=== PATIENT | female | born 2000 | race Caucasian/White ===

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

== ENCOUNTER 2022-02-01 19:50 | Emergency (ER) | payer BC ==
--- OUTSIDE RECORDS SUMMARY | 2022-02-01 19:54 | XMS REPORT | Continuity of Care Document ---
:2000 Author Organization [facility] t Address [facility] [address] [place] [address] Care Team Providers Name Role Phone PAYTON Primary Care Physician Unavailable KARIN Attending Clinician Unavailable Mel GOOD Attending Clinician Unavailable Dain MULLER Attending Clinician Unavailable Dain Lopez Attending Clinician Mel Good MD Attending Clinician 2, Lab Attending Clinician Unavailable Doctor Unassigned, Name Attending Clinician Unavailable GRACIELA Attending Clinician Unavailable Graciela BLEVINS Attending Clinician Violeta ROBERTSON Attending Clinician Unavailable Violeta ROBERTSON Admitting Clinician Unavailable Payers Payer Name Policy Type Policy Number Effective Date Expiration Date [facility] [id number] 2017 00:00:00 SELECT Advance Directives Directive Decision Effective Termination Comments Source Date Date Healthcare Agents on N/A [facility] FileNameRetooele valley hospitalipHealthcare [facility] Agent Medical RelationshipCommunicationArchbold - Grady [facility] Branch Soheila DaveyMitherHealth Care [phone] (Mobile) [email or web address] mook Davey Jr.[facility] Care [phone] (Mobile) Problems Condition Condition Condition Status Onset Resolution Last Treating Co mments Source Name Details Category Date Date Treatment Clinician Date Anxiety in Anxiety in Disease Active U nivers 4-22 ity of in first in first 00:00: [place] trimester, trimester, 00 Me dical antepartum antepartum Br anch 11 weeks 11 weeks Disease Active Unive rs gestation gestation 4-22 ity of of of 00:00: [place] 00 [facility] High-risk High-risk Disease Active Uni vers 4-22 ity of in first in first 00:00: [place] trimester trimester 00 [facility] Nausea and Nausea and Disease Active U nivers vomiting vomiting 4-22 ity of during during 00:00: [place] 00 [facility] History of History of Disease Active U nivers hypertensi hypertensi 4-22 it y of on on 00:00: [place] [facility] Anxiety Anxiety Disease Active Univers and and 3-25 ity of depression [place] Obesity Obesity Disease Active Univers (BMI (BMI 1-29 ity of 30-39.9) 30-39.9) 00:00: [place] [facility] JOSE JOSE Disease Active 2018-10 Univers (obstructi (obstructi 0-25 it y of ve sleep ve sleep 00:00: [place] apnea) apnea) 00 Medical Branch Pes planus Pes planus Disease Active U nivers of both of both 3-18 ity of feet feet 00:00: [place] 00 Medical Branch NSAID NSAID Disease Active Univers long-term long-term 3-18 ity of use use 00:00: [place] [facility] Hamstring Hamstring Disease Active Uni vers tightness tightness 3-18 ity of of both of both 00:00: [place] lower lower 00 Medical extremitie extremitie Br anch s s Arthralgia Arthralgia Disease Active U nivers 3-18 ity of 00:00: [place] 00 Medical Branch Abnormal Abnormal Disease Active Unive rs laboratory laboratory 3-18 it y of test test 00:00: [place] result result 00 Medical Branch Rheumatoid Rheumatoid Disease Active U nivers factor factor 2-18 ity of positive positive 00:00: [place] [facility] Dry skin Dry skin Disease Active Unive rs 2-18 ity of 00:00: [place] 00 Medical Branch Allergies, Adverse Reactions, Alerts Allergy Allergy Status Severity Reaction(s) Onset Inactive Treating Comm ents Source Name Type Date Date Clinician NO KNOWN Drug Active Univers ALLERGIE Class ity of S [facility] [place] [facility] Social History Social Habit Start Date Stop Date Quantity Comments Source ASSERTION 2021-11-16 [facility] 00:00:00 [place] [facility] History SDOH University o f Alcohol Frequency [place] M edical [facility] History SDOH University o f Alcohol Std [place] Medical Drinks Branch History SDID University o f Alcohol Binge [place] Medic al Branch Exposure to 2022-01-21 2022-01-31 Not sure [facility] [place]-CoV-2 00:00:00 20:32:00 [facility] (event) Branch Alcohol intake 2022-01-31 2022-01-31 Ex-drinker [facility] 00:00:00 00:00:00 (finding) [facility] [place] [facility] Alcohol Comment 2021-12-09 2021-12-09 4x a year Universit y of 00:00:00 00:00:00 [facility] [place] [facility] Tobacco use and 2015-11-20 2015-11-20 Never used Universit y of exposure 00:00:00 00:00:00 [facility] [place] [facility] Sex Assigned At [birth year] Universit y of 00:00:00 00:00:00 [facility] [place] [facility] Smoking Status Start Date Stop Date Source Never smoker [facility] Medications Ordered Filled Start Stop Current Ordering Indication Dosage Frequency Signature Comments Components Source Medication Medication Date Date Medication? Clinician (SIG) Name Name SERTraline Yes [id number] 25mg Take 1 Univers 25 mg 3-25 109 tablet by ity of tablet 00:00: mouth 00 daily. Medical Branch proMETHazin Yes [id number] 12.5mg Take 1 Univers e 12.5 mg 3-25 tablet by ity o f tablet 00:00: mouth 00 every 4 Medical (four) Branch hours as needed for Nausea and Vomiting (N/V). SERTraline Yes [id number] 25mg Take 1 Univers 25 mg 3-25 109 tablet by ity of tablet 00:00: mouth 00 daily. Medical Branch proMETHazin Yes [id number] 12.5mg Take 1 Univers e 12.5 mg 3-25 tablet by ity o f tablet 00:00: mouth [place] 00 every 4 Medical (four) Branch hours as needed for Nausea and Vomiting (N/V). SERTraline 0 Yes [id number] 25mg Take 1 Univers 25 mg 3-25 109 tablet by ity of tablet 00:00: mouth [place] 00 daily. Medical Branch proMETHazin 0 Yes [id number] 12.5mg Take 1 Univers e 12.5 mg 3-25 tablet by ity o f tablet 00:00: mouth [place] 00 every 4 Medical (four) Branch hours as needed for Nausea and Vomiting (N/V). SERTraline 0 Yes [id number] 25mg Take 1 Univers 25 mg 3-25 109 tablet by ity of tablet 00:00: mouth [place] 00 daily. Medical Branch proMETHazin 0 Yes [id number] 12.5mg Take 1 Univers e 12.5 mg 3-25 tablet by ity o f tablet 00:00: mouth [place] 00 every 4 Medical (four) Branch hours as needed for Nausea and Vomiting (N/V). SERTraline 0 Yes [id number] 25mg Take 1 Univers 25 mg 3-25 109 tablet by ity of tablet 00:00: mouth [place] 00 daily. Medical Branch proMETHazin 0 Yes [id number] 12.5mg Take 1 Univers e 12.5 mg 3-25 tablet by ity o f tablet 00:00: mouth [place] 00 every 4 Medical (four) Branch hours as needed for Nausea and Vomiting (N/V). SERTraline 0 Yes [id number] 25mg Take 1 Univers 25 mg 3-25 109 tablet by ity of tablet 00:00: mouth [place] 00 daily. Medical Branch proMETHazin 0 Yes [id number] 12.5mg Take 1 Univers e 12.5 mg 3-25 tablet by ity o f tablet 00:00: mouth [place] 00 every 4 Medical (four) Branch hours as needed for Nausea and Vomiting (N/V). ondansetron 2021- No 4mg 4 mg, Slow Univers (ZOFRAN 3-15 03-15 IV Push, ity of (PF)) 01:15: 00:33 ONCE, 1 [place] injection 4 00 :00 dose, On Medi kevin mg Mon Branch 3/14/22 at 2015, KAUSHIK NaCl 0.9% No 1000mL at 999 Uni vers (NS) bolus 3-15 03-15 mL/hr, ity of infusion 01:00: 01:52 1,000 mL, [place] as 1,000 mL 00 :00 IV Medical Infusion, Branch ONCE, 1 dose, On 12/14/21 at 2000, KAUSHIK Yes [id number] 1{tbl} Take 1 U nivers vit 3-09 tablet by ity of no.124/iron 14:55: [place] /folic 30 Medical ( Branch VITAMIN ORAL) Yes [id number] 1{tbl} Take 1 U nivers vit 3-09 tablet by ity of no.124/iron 14:55: [place] /folic 30 Medical ( Branch VITAMIN ORAL) Yes [id number] 1{tbl} Take 1 U nivers vit 3-09 tablet by ity of no.124/iron 14:55: [place]. [place] /folic 30 Medical ( Branch VITAMIN ORAL) Yes [id number] 1{tbl} Take 1 U nivers vit 3-09 tablet by ity of no.124/iron 14:55: [place] /folic 30 Medical ( Branch VITAMIN ORAL) Yes [id number] 1{tbl} Take 1 U nivers vit 3-09 tablet by ity of no.124/iron 14:55: [place]. [place] /folic 30 Medical ( Branch VITAMIN ORAL) Yes [id number] 1{tbl} Take 1 U nivers vit 3-09 tablet by ity of no.124/iron 14:55: [place]. [place] /folic 30 Medical ( Branch VITAMIN ORAL) Yes [id number] 1{tbl} Take 1 U nivers vit 3-09 tablet by ity of no.124/iron 14:55: [place]. [place] /folic 30 Medical ( Branch VITAMIN ORAL) Yes [id number] 1{tbl} Take 1 U nivers vit 3-09 tablet by ity of no.124/iron 14:55: [place]. [place] /folic 30 Medical ( Branch VITAMIN ORAL) Yes [id number] 1{tbl} Take 1 U nivers vit 3-09 tablet by ity of no.124/iron 14:55: [place]. [place] /folic 30 Medical ( Branch VITAMIN ORAL) dicyclomine 2021- No [id number] 10mg Take 1 Univers 10 mg 2-15 - capsule by ity of capsule 00:00: 00:00 mouth 4 [place] 00 :00 (four) Medical times Branch daily. amoxicillin 2021- No Unive rs -clavulanat 06-10 ity of e 875-125 00:00: 00:00 [place] mg per 00 :00 Medical tablet Branch SERTRALINE Yes [id number] TAKE ONE Univers 25 mg 7-27 TABLET BY ity of tablet 00:00: MOUTH [place] DAILY Medical Branch SERTRALINE Yes [id number] TAKE ONE Univers 25 mg 7-27 TABLET BY ity of tablet 00:00: MOUTH [place] DAILY Medical Branch SERTRALINE Yes [id number] TAKE ONE Univers 25 mg 7-27 TABLET BY ity of tablet 00:00: MOUTH [place] 00 DAILY Medical Branch SERTRALINE 2021- No [id number] TAKE ONE Univers 25 mg 7-27 03-25 TABLET BY ity of tablet 00:00: 00:00 MOUTH [place] 00 :00 DAILY Medical Branch levonorgest 2021- No 1{devic 1 Device Univers rel (RAMIN) 04-07 e} by ity of 14 mcg/24 00:00: 00:00 Intrauteri [place] hrs (3 yrs) 00 :00 ne route Medi kevin 13.5 mg IUD once now. [facility] levocetiriz 2021- No [id number] 5mg Take 1 Univers ine 5 mg 06-14 tablet by ity o f tablet 00:00: 00:00 mouth [place] 00 :00 every Medical evening. Branch fluticasone 2021- No [id number] 2{spray Use 2 Univers propionate 06-14 } Sprays in ity of 50 00:00: 00:00 each [place] mcg/actuati 00 :00 nostril Medic al on nasal daily. Branch spray Immunizations Ordered Filled Immunization Date Status Comments [facility] e Immunization Name Name HPV9 2020-08-11 Completed University of 00:00:00 [facility] Branch HPV9 2020-08-11 Completed University of 00:00:00 [facility] Branch HPV9 2020-08-11 Completed University of 00:00:00 [facility] Branch HPV9 2020-08-11 Completed University of 00:00:00 [facility] Branch HPV9 2020-08-11 Completed University of 00:00:00 [facility] Branch HPV9 2020-08-11 Completed University of 00:00:00 [facility] Branch HPV9 2020-08-11 Completed University of 00:00:00 [facility] Branch HPV9 2020-08-11 Completed University of 00:00:00 [facility] Branch HPV9 2020-08-11 Completed University of 00:00:00 [facility] Branch HPV9 2020-04-07 Completed University of 00:00:00 [facility] [place] [facility] HPV9 2020-04-07 Completed University of 00:00:00 [facility] Branch HPV9 2020-04-07 Completed University of 00:00:00 [facility] Branch HPV9 2020-04-07 Completed University of 00:00:00 [facility] Branch HPV9 2020-04-07 Completed University of 00:00:00 [facility] Branch HPV9 2020-04-07 Completed University of 00:00:00 [facility] Branch HPV9 2020-04-07 Completed University of 00:00:00 [facility] Branch HPV9 2020-04-07 Completed University of 00:00:00 [facility] Branch HPV9 2020-04-07 Completed University of 00:00:00 [facility] Branch HPV9 2019-07-23 Completed University of 00:00:00 [facility] Branch HPV9 2019-07-23 Completed University of 00:00:00 [facility] Branch HPV9 2019-07-23 Completed University of 00:00:00 [facility] Branch HPV9 2019-07-23 Completed University of 00:00:00 [facility] Branch HPV9 2019-07-23 Completed University of 00:00:00 [facility] Branch HPV9 2019-07-23 Completed University of 00:00:00 [facility] Branch HPV9 2019-07-23 Completed University of 00:00:00 [facility] Branch HPV9 2019-07-23 Completed University of 00:00:00 [facility] Branch HPV9 2019-07-23 Completed University of 00:00:00 [facility] [place] [facility] Vital Signs Vital Name Observation Time Observation Value Comments Source Systolic blood 2022-02-01 01:32:00 111 mm[Hg] Univer sity of pressure [facility] Branch Diastolic blood 2022-02-01 01:32:00 74 mm[Hg] Unive rsity of pressure [facility] Branch Heart rate 2022-02-01 01:32:00 87 /min Universi ty of [facility] [place] [facility] Body temperature 2022-02-01 01:32:00 37.22 Marie Univ ersity of [place] [facility] Respiratory rate 2022-02-01 01:32:00 18 /min Univ ersity of [place] [facility] Body height 2022-02-01 01:32:00 152.4 cm Universi ty of [place] [facility] Body weight 2022-02-01 01:32:00 89.449 kg Universi ty of [place] [facility] BMI 2022-02-01 01:32:00 38.51 kg/m2 Universi ty of [place] [facility] Body mass index 2022-02-01 01:32:00 98.18 % Unive rsity of (BMI) [Percentile] [place] Med ical Per age and sex Branch Systolic blood 2022-01-22 15:56:00 124 mm[Hg] Univer sity of pressure [place] [facility] Diastolic blood 2022-01-22 15:56:00 77 mm[Hg] Unive rsity of pressure [place] [facility] Heart rate 2022-01-22 15:56:00 73 /min Universi ty of [facility] Branch Body temperature 2022-01-22 15:56:00 37 Marie Univ ersity of [place] [facility] Respiratory rate 2022-01-22 15:56:00 18 /min Univ ersity of [place] [facility] Body height 2022-01-22 15:56:00 152.4 cm Universi ty of [place] [facility] Body weight 2022-01-22 15:56:00 89.359 kg Universi ty of [place] [facility] BMI 2022-01-22 15:56:00 38.47 kg/m2 Universi ty of [place] [facility] Body mass index 2022-01-22 15:56:00 98.18 % Unive rsity of (BMI) [Percentile] [place] Med ical Per age and sex Branch Systolic blood 2021-12-25 20:20:00 118 mm[Hg] Univer sity of pressure [place] [facility] Diastolic blood 2021-12-25 20:20:00 83 mm[Hg] Unive rsity of pressure [place] [facility] Heart rate 2021-12-25 20:20:00 85 /min Universi ty of [facility] [place] [facility] Body temperature 2021-12-25 20:20:00 36.89 Marie Univ ersity of [facility] Branch Respiratory rate 2021-12-25 20:20:00 18 /min Univ ersity of [facility] Branch Body weight 2021-12-25 20:20:00 90.719 kg Universi ty of [facility] [place] [facility] Systolic blood 2021-12-15 01:00:00 119 mm[Hg] Univer sity of pressure [facility] Branch Diastolic blood 2021-12-15 01:00:00 79 mm[Hg] Unive rsity of pressure [facility] [place] [facility] Heart rate 2021-12-15 01:00:00 66 /min Universi ty of [facility] [place] [facility] Respiratory rate 2021-12-15 01:00:00 18 /min Univ ersity of [facility] [place] [facility] Oxygen saturation in 2021-12-15 01:00:00 100 /min University Arterial blood by [facility] Pulse oximetry Branch Body temperature 2021-12-14 23:33:00 37.39 Marie Univ ersity of [facility] [place] [facility] Body weight 2021-12-14 23:33:00 91.627 kg Universi ty of [place] [facility] [place] BMI 2021-12-14 23:33:00 39.45 kg/m2 Universi ty of [facility] [place] [facility] Body mass index 2021-12-14 23:33:00 98.39 % Unive rsity of (BMI) [Percentile] [place] Med ical Per age and sex Branch Systolic blood 2021-12-09 20:22:00 124 mm[Hg] Univer sity of pressure [facility] Branch Diastolic blood 2021-12-09 20:22:00 78 mm[Hg] Unive rsity of pressure [facility] [place] [facility] Heart rate 2021-12-09 20:22:00 71 /min Universi ty of [facility] [place] [facility] Body temperature 2021-12-09 20:22:00 36.72 Marie Univ ersity of [facility] Branch Respiratory rate 2021-12-09 20:22:00 18 /min [facility] Body height 2021-12-09 20:22:00 152.4 cm [facility] Body weight 2021-12-09 20:22:00 91.627 kg [facility] BMI 2021-12-09 20:22:00 39.45 kg/m2 [facility] Body mass index 2021-12-09 20:22:00 98.39 % [facility] [place] [facility] (BMI) [Percentile] [facility] Per age and sex Branch Procedures Procedure Date / Time Performing Clinician Source Performed POCT URINALYSIS 2022-02-01 01:40:00 Mike [facility] POCT URINALYSIS W/O 2022-01-22 00:00:00 Adum, Charla Leal [facility] <14 WEEKS US 2021-12-25 23:07:46 Adum, Charla [facility] ULTRASOUND 2021-12-25 05:01:00 Doctor Unassigned, No [facility] POCT URINALYSIS W/O 2021-12-25 00:00:00 Adum, Charla Leal [facility] BASIC METABOLIC PANEL 2021-12-15 01:10:00 Ria [facility] (NA, K, CL, CO2, Medical [place] GLUCOSE, BUN, CREATININE, CA) CBC WITH DIFF 2021-12-15 00:30:00 Graciela [facility] URINALYSIS 2021-12-15 00:13:00 Graciela [facility] NOTICE OF PRIVACY 2021-12-14 23:30:41 Doctor Unassigned, No [facility] PRACTICES [facility] URINE DRUG (IMMUNOASSAY) 2021-12-09 20:48:00 Adum, Charla Orellana [facility] DRUG Medical [facility] SCREEN GC & CHLAMYDIA AMPLIFIED 2021-12-09 20:48:00 Adum, Charla Orellana [facility] TRICHOMONAS AMPLIFIED 2021-12-09 20:48:00 Adum, Charla Leal [facility] POCT TEST 2021-12-09 00:00:00 AdumCharla ty [facility] [place] [facility] POCT URINALYSIS W/O 2021-12-09 00:00:00 AdCharla arnold [facility] ty [facility] Encounters Start End Encounter Admission Attending Care Care Encounter Source Date/Time Date/Time Type Type Clinicians Facility Department ID 2022-04-21 2022-04-21 Outpatient R KARIN, [facility] [id number] Univers 15:30:00 15:30:00 [facility] [id number] 2022-02-19 Outpatient ADUM, [facility] [id number] Univers 11:00:00 11:00:00 [facility] [id number] [facility] 2022-01-31 2022-01-31 [facility] [id number] Univers 20:40:00 20:50:37 NOBLE ity o f [facility] [place] [facility] 2022-01-31 2022-01-31 Urgent [facility] [id number] Univers 20:40:00 20:50:37 Care [facility] [id number] ity of [place] [id number] [place] GERALD?BLEA [phone] Il dical EY [address] [place] MEDICAL OFFICE BUILDING 2022-01-31 2022-01-31 Outpatient R [facility] [id number] Univers 20:40:00 20:40:00 [id number] ity [facility] [place] [facility] 2022-01-22 2022-01-22 Outpatient R ADUM, [facility] [id number] Univers 10:45:00 11:21:39 CHARLA ity [facility] [place] [facility] 2022-01-22 2022-01-22 Routine Adum, [facility] 1.2.840.114 [id number] Univers 10:45:00 11:21:39 Charla MELGOZA [id number] ity of [facility] [id number] [place] [phone] Il dical [facility] 134 Branch BUILDING 2022-01-22 2022-01-22 Outpatient R ADUM, [facility] [id number] Univers 10:45:00 10:45:00 CHARLA [id number] ity of [facility] [place] [facility] 2021-12-28 2021-12-28 Outpatient R ADUM, [facility] [id number] Univers 08:15:00 09:38:22 CHARLA ity [facility] [place] [facility] 2021-12-28 2021-12-28 Chin Strap Maker 2, Adc Lab [facility] 1.2.840.114 [id number] Univers 08:15:00 08:30:00 Visit Adum, Charla Leal [place] [id number] ity of [facility] [id number] [place] [id number] Il dical NAL [address] [facility] 2021-12-28 2021-12-28 Outpatient R [facility] [id number] Univers 08:15:00 08:15:00 [id number] ity of [facility] [place] [facility] 2021-12-25 2021-12-25 Chin Strap Maker 2, Adc Lab [facility] 1.2.840.114 [id number] Univers 16:15:00 16:30:00 Visit Adum, Charla Mel [place] [id number] ity of [facility] [id number] [place] [id number] Il dical NAL [address] [facility] 2021-12-25 2021-12-25 Outpatient R ADUM, [facility] [id number] Univers 16:15:00 16:15:00 CHARLA [id number] ity of [facility] [place] [facility] 2021-12-25 2021-12-25 Outpatient R ADUM, [facility] [id number] Univers 15:00:00 16:02:29 CHARLA ity [facility] [place] [facility] 2021-12-25 2021-12-25 Routine Adum, [facility] [id number] Univers 15:00:00 16:02:29 Charla Leal [place] [id number] ity of Visit [place] [id number] [place] [phone] Il dical NAL [address] [facility] 2021-12-25 2021-12-25 Orders Doctor EDIN 1.2.840.114 [id number] Univers 00:00:00 00:00:00 Only Unassigned, MICHOACANO [id number] ity of [place] [facility] [id number] [place] [phone] [facility] [address] [place] 2021-12-14 2021-12-14 Emergency X [facility] ERT [id number] Univers 18:35:00 20:55:00 RIA ity [facility] [place] [facility] 2021-12-14 2021-12-14 [facility] [id number] Univers 18:35:00 20:55:00 Ria MELGOZA [id number] i ty of [place] [id number] [place] C[place] [phone] [facility] [address] [place] 2021-12-11 2021-12-11 Chin Strap Maker 2, Adc Lab [facility] 1.2.840.114 [id number] Univers 14:30:00 14:45:00 Visit Adum, Charla MELGOZA [id number] ity of [place] [id number] [place] [id number] Il dical [facility] 353 [facility] 2021-12-11 2021-12-11 [facility] [id number] Univers 14:30:00 14:30:00 CHARLA birch [facility] [place] [facility] 2021-12-09 2021-12-09 [facility] 1.2.840.114 [id number] Univers 14:30:00 15:10:11 Charla MELGOZA [id number] ity of Visit [place] [id number] [place] PROF[place] [id number] Il dical [facility] 134 [facility] 2021-12-09 2021-12-09 Outpatient R [facility] [id number] Univers 14:30:00 15:10:11 CHARLA birch [facility] [place] [facility] 2021-11-17 2021-11-17 Emergency X [facility] ERT [id number] Univers 15:58:00 18:00:00 [facility] Results Test Description Test Time Test Comments Results Result Comments Source POCT URINALYSIS W SPECIFIC GRAVITY 2022-02-01 01:41:00 Test Item Value Reference Range Interpretation Comme nts POCT U SP GRAV (test code = 3255) 1.025 mg/dl 1.005-1.025 POCT PH U (test code = 3254) 5 mg/dl 5-8 POCT U LEUK EST (test code = 3263) trace Negative - Negative POCT U NIT (test code = 3262) neg Negative - Negative POCT U PROT (test code = 3259) neg Negative - Negative POCT U GLU (test code = 3256) neg Negative - Negative POCT U KETONE (test code = 3258) neg Negative - Negative POCT U UROBILI (test code = 3260) neg 0.2-1 POCT U BILI (test code = 3261) neg Negative - Negative POCT U BLD (test code = 3257) neg Negative - Negative POCT U COLOR (test code = 3266) yellow POCT U APPEAR (test code = 3267) clear Lab Interpretation (test code = 13617-5) [facility] SPECIFIC [id number] 16:02:00 Test Item Value Reference Range Interpretation Comments POCT PH U (test code = 3254) N/A 5-8 POCT U LEUK EST (test code = N/A Negative - Negative 3263) POCT U NIT (test code = 3262) N/A Negative - Negative POCT U PROT (test code = 3259) Negative Negative - Negative POCT U GLU (test code = 3256) Negative Negative - Negative POCT U KETONE (test code = 3258) N/A Negative - Negative POCT U BLD (test code = 3257) N/A Negative - Negative [facility] SPECIFIC [id number] 20:25:00 Test Item Value Reference Range Interpretation Comments POCT PH U (test code = 3254) 5 mg/dl 5-8 POCT U LEUK EST (test code = neg Negative - Negative 3263) POCT U NIT (test code = 3262) neg Negative - Negative POCT U PROT (test code = 3259) neg Negative - Negative POCT U GLU (test code = 3256) neg Negative - Negative POCT U KETONE (test code = 3258) neg Negative - Negative POCT U BLD (test code = 3257) neg Negative - Negative [facility] METABOLIC PANEL (NA, K, CL, CO2, GLUCOSE, BUN, CREATININE, CA)2021-12-15 01:32:07 Test Item Value Reference Range Interpretation Comments NA (test code = 135 mmol/L 135-145 4172002845) K (test code = 4.3 mmol/L 3.5-5.0 0266585700) CL (test code = 106 mmol/L 98-108 2031804061) CO2 TOTAL (test code = 19 mmol/L 23-31 L 5073283413) AGAP (test code = 2-16 8988661675) BUN (test code = 13 mg/dL 7-23 1248289290) GLUCOSE (test code = 82 mg/dL 70-110 1684627524) CREATININE (test code = 0.50 mg/dL 0.50-1.04 5079822198) CALCIUM (test code = 8.5 mg/dL 8.6-10.6 L 6297035431) eGFR (test code = mL/min/1.73m2 5715245511) ASHLEIGH (test code = ASHLEIGH) Association of Glomerular Filtration Rate (GFR) and Staging of Kidney Disease* + --+ --+ ------+| GFR (mL/min/1.73 m2) ?| With Kidney Damage ?| ?Without Kidney Damage+ --------+ --------+ +| ?>90 ?| ?Stage one ?| ? Normal ?+ ---+ ---+ -------+| ?60-89 ?| ?Stage two ?| ? Decreased GFR ? + --+ --+ ------+| ?30-59 ?| ?Stage three ?| ? Stage three ? + --+ --+ ------+| ?15-29 ?| ?Stage four ? | ? Stage four ?+ ---+ ---+ -------+| ?<15 (or dialysis) ? ?| ?Stage five ? | ? Stage five ?+ ---+ ---+ -------+ *Each stage assumes the associated GFR level has been in effect for at least three months. ?Stages 1 to 5, with or without kidney disease, indicate chronic kidney disease. Notes: Determination of stages one and two (with eGFR >59mL/min/1.73 m2) requires estimation of kidney damage for at least three months as defined by structural or functional abnormalities of the kidney, manifested by either:Pathological abnormalities or Markers of kidney damage (including abnormalities in the composition of the blood or urine or abnormalities in imaging tests). Lab Interpretation Abnormal (test code = 49179-4) [facility] WITH [id number] 01:14:25 Test Item Value Reference Range Interpretation Comments WBC (test code = See_Comment H [Automated 6690-2) message] The sy stem which generated this result transmitted reference range : 4.30 - 11.10 10*3/?L. The reference range was not used to interpret this result as normal/abnormal . RBC (test code = See_Comment [Automated 789-8) message] The sy stem which generated this result transmitted reference range : 3.93 - 5.25 10*6/?L. The reference range was not used to interpret this result as normal/abnormal . HGB (test code = 14.4 g/dL 11.6-15.0 718-7) HCT (test code = 41.3 % 35.7-45.2 4544-3) MCV (test code = 84.3 fL 80.6-95.5 787-2) MCH (test code = 29.4 pg 25.9-32.8 785-6) MCHC (test code = 34.9 g/dL 31.6-35.1 786-4) RDW-SD (test code = 37.8 fL 39.0-49.9 L 73329-9) RDW-CV (test code = 12.4 % 12.0-15.5 788-0) PLT (test code = See_Comment H [Automated 777-3) message] The sy stem which generated this result transmitted reference range : 166 - 358 10*3/ ?L. The reference r niko was not used to interpret this result as normal/abnormal . MPV (test code = 9.0 fL 9.5-12.9 L 33075-6) NRBC/100 WBC (test See_Comment [Automat ed code = [id number]) message] The system which generated this result transmitted reference range : 0.0 - 10.0 /100 WBCs. The refer ence range was not u sed to interpret th is result as normal/abnormal . NRBC x10^3 (test code <0.01 See_Comment [Auto mated = [id number]) message] The s ystem which generated this result transmitted reference range : 10*3/?L. The reference range was not used to interpret this result as normal/abnormal . SEG % (test code = 59 % 33-76 24297-9) BAND % (test code = 3 % 0-1 H 95049-7) LYMPH % (test code = 29 % 14-54 22174-9) MONO % (test code = 8 % 0-4 H 02654-0) EOS % (test code = 1 % 0-3 08749-3) ANC (test code = 7.45 10*3/uL 1.88-7.09 H 753-4) Lab Interpretation Abnormal (test code = 69620-5) [facility]/O SPECIFIC [id number] 20:48:00 Test Item Value Reference Range Interpretation Comments POCT PH U (test code = 3254) n/a 5-8 POCT U LEUK EST (test code = n/a Negative - Negative 3263) POCT U NIT (test code = 3262) n/a Negative - Negative POCT U PROT (test code = 3259) negaitve Negative - Negative POCT U GLU (test code = 3256) negaitve Negative - Negative POCT U KETONE (test code = 3258) n/a Negative - Negative POCT U BLD (test code = 3257) n/a Negative - Negative [facility] [id number] 20:38:00 Test Item Value Reference Range Interpretation Comments POCT PREG (test code = 1605) Positive On board controls acceptable with C Yes Line (test code = 3574) POCT PREG LOT # (test code = 3575) POCT PREG TEST DATE (test code = 3576) [facility]"
[2022-02-01 21:58] LABS: Urine Blood Negative (Negative); Urine Glucose Negative (Negative); Urine Protein Negative (Negative); Urine Specific Gravity >=1.030 (1.005-1.030); Urine pH 5.5 (5.0-7.0)
[2022-02-01 22:56] LABS: Absolute Lymphocytes (CBC) 3.8 K/uL (0.7-4.9); Hematocrit 40.4 % (36.0-45.0); Lymphocytes % 38.1 % (15.3-44.8); MPV 7.1 fL (7.6-11.3); RBC Red Blood Cell Count 4.74 M/uL (3.86-4.86)
[2022-02-01 23:03] LABS: ALT/SGPT 26 U/L (12-78); AST/SGOT 17 U/L (15-37); Albumin 3.4 g/dL (3.4-5.0); Alkaline Phosphatase 50 U/L (45-117); BUN Blood Urea Nitrogen 6 mg/dL (7-18); Bicarbonate 21 mmol/L (21-32); Bilirubin Total 0.2 mg/dL (0.2-1.0); Glucose Level 84 mg/dL (74-106); Lipase 102 U/L (73-393); Potassium 3.6 mmol/L (3.5-5.1); Protein, Total 6.8 g/dL (6.4-8.2); Sodium Level 138 mmol/L (136-145)
--- NOTE | 2022-02-01 23:44 | ER ---
Nurse's Notes [facility] Name: Ana Davey Age: 21 yrs Sex: Female : 2000 Arrival Date: 02/01/2022 Time: 19:54 Bed 13 Private MD: Diagnosis: Abdominal pain, unspecified Presentation: 02/01 20:28 Chief complaint: Patient states: burning with urination and urinary frequency. patient al4 was seen yesterday at [facility] and tested for a UTI, but was negative. today the burning has subsided, but frequency is still present along with new onset abdominal pain RUQ and LUQ. Coronavirus screen: Vaccine status: Patient reports being unvaccinated. Ebola Screen: No symptoms or risks identified at this time. Initial Sepsis Screen: Does the patient meet any 2 criteria? No. Patient's initial sepsis screen is negative. Does the patient have a suspected source of infection? No. Patient's initial sepsis screen is negative. Risk Assessment: Do you want to hurt yourself or someone else? Patient reports no desire to harm self or others. Onset of symptoms was January 31, 2022. 20:28 Method Of Arrival: Ambulatory al4 20:28 Acuity: BALTA 3 al4 Triage Assessment: 20:31 General: Appears in no apparent distress. uncomfortable, Behavior is calm, cooperative. al4 Pain: Complains of pain in right upper quadrant and left upper quadrant Pain currently is 8 out of 10 on a pain scale. Quality of pain is described as stabbing. Neuro: Level of Consciousness is awake, alert, obeys commands, Oriented to person, place, time, situation. Cardiovascular: Patient's skin is warm and dry. Respiratory: Airway is patent Respiratory effort is unlabored, Respiratory pattern is regular. GI: Reports nausea. : Reports burning with urination, urinary frequency. 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 - Social history:: Smoking status: Patient denies any tobacco usage or history of. Screenin:51 Abuse screen: Denies threats or abuse. Denies injuries from another. Nutritional ld1 screening: No deficits noted. Tuberculosis screening: No symptoms or risk factors identified. Fall Risk None identified. Assessment: 21:10 Reassessment: Patient appears in no apparent distress at this time. Patient is alert al4 and oriented. Patient has visitor present. . 21:22 Reassessment: patient reports being 12 weeks . al4 22:00 Reassessment: waiting on patient to return from ultrasound to draw labs. al4 22:51 Reassessment: Patient appears in no apparent distress at this time. Patient and/or ld1 family updated on plan of care and expected duration. Pain level reassessed. Patient is alert, oriented x 3, equal unlabored respirations, skin warm/dry/pink. 23:35 Reassessment:. ld1 Vital Signs: 20:28 BP 117 / 84; Pulse 77; Resp 14; Temp 99.2; Pulse Ox 100% ; Weight 89.36 kg; Height 5 al4 ft. 0 in. (152.40 cm); Pain 8/10; 21:21 BP 123 / 81; Pulse 75; Resp 14; Pulse Ox 100% ; Pain 8/10; al4 20:28 Body Mass Index 38.47 (89.36 kg, 152.40 cm) al4 ED Course: 19:54 Patient arrived in ED. kz 20:31 Triage completed. al4 20:31 Arm band placed on right wrist. al4 21:18 Jay Price PA is PHCP. [facility] 21:18 Janes Govea MD is Attending Physician. jmm 21:30 Missed attempt(s): 20 gauge in right wrist. Bleeding controlled, band aid applied, al4 catheter tip intact. 22:14 US Abdomen Limited In Process Unspecified. EDMS 22:14 US 1st Trimest Single 1st Fetus In Process Unspecified. EDMS 22:35 CBC with Diff Sent. ld1 22:35 CMP Sent. ld1 22:35 Lipase Sent. ld1 22:35 Inserted saline lock: 24 gauge in right forearm, using aseptic technique. Blood ld1 collected. 22:49 Yarely Melgar, KUMAR is Primary Nurse. ld1 22:51 Patient has correct armband on for positive identification. Placed in gown. Bed in low ld1 position. Call light in reach. Side rails up X2. language interpreter on. Pulse ox on. NIBP on. Door closed. Noise minimized. Warm blanket given. 22:51 No provider procedures requiring assistance completed. ld1 23:56 IV discontinued, intact, bleeding controlled, No redness/swelling at site. ld1 Administered Medications: No medications were administered Outcome: 23:44 Discharge ordered by MD. arriaga 23:56 Discharged to home ambulatory, with family. ld1 23:56 Condition: stable 23:56 Discharge instructions given to patient, family, Instructed on discharge instructions, follow up and referral plans. Demonstrated understanding of instructions, follow-up care. 23:56 Patient left the ED. ld1 Signatures: Dispatcher [employer] EDMS Jay Price PA PA jmm Dibbern, Lauren RN RN ld1 Kendall Baker Kelly kz Corrections: (The following items were deleted from the chart) 21:04 20:03 Reassessment: patient given urine specimen cup and educated on the need for a ld1 sample ld1
--- NOTE | 2022-02-01 23:44 | EDPHYS ---
Physician Documentation [facility] Name: Ana Davey Age: 21 yrs Sex: Female : 2000 Arrival Date: 02/01/2022 Time: 19:54 Bed 13 Private MD: ED Physician Janes Govea HPI: 02/01 21:22 This 21 yrs old Female presents to ER via Ambulatory with complaints of Abdominal Pain [facility]. 21:22 The patient presents with abdominal pain in the epigastric area. Is a 21-year-old jmm female currently G1, P0 states pain 12 weeks IUP the presents emerged part with complaints of epigastric abdominal pain beginning today. Denies vomiting or diarrhea. Patient denies fever or chills. Patient states that yesterday she developed dysuria and went to an urgent care for further evaluation. She has yet to receive the results.. 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 - Social history:: Smoking status: Patient denies any tobacco usage or history of. ROS: 21:22 Constitutional: Negative for fever, chills, and weight loss, Cardiovascular: Negative jmm for chest pain, palpitations, and edema, Respiratory: Negative for shortness of breath, cough, wheezing, and pleuritic chest pain. 21:22 Abdomen/GI: Positive for abdominal pain. 21:22 All other systems are negative. Exam: 21:22 Constitutional: This is a well developed, well nourished patient who is awake, alert, jmm and in no acute distress. Head/Face: atraumatic. Eyes: EOMI, no conjunctival erythema appreciated ENT: Moist Mucus Membranes Neck: Trachea midline, Supple Chest/axilla: Normal chest wall appearance and motion. Cardiovascular: Regular rate and rhythm. No edema appreciated Respiratory: Normal respirations, no respiratory distress appreciated 21:22 Back: Normal ROM Skin: General appearance color normal MS/ Extremity: Moves all extremities, no obvious deformities appreciated, no edema noted to the lower extremities Neuro: Awake and alert 21:22 Abdomen/GI: Inspection: abdomen appears normal, Bowel sounds: normal, Palpation: soft, mild abdominal tenderness, in the epigastric area. Vital Signs: 20:28 BP 117 / 84; Pulse 77; Resp 14; Temp 99.2; Pulse Ox 100% ; Weight 89.36 kg; Height 5 al4 ft. 0 in. (152.40 cm); Pain 8/10; 21:21 BP 123 / 81; Pulse 75; Resp 14; Pulse Ox 100% ; Pain 8/10; al4 20:28 Body Mass Index 38.47 (89.36 kg, 152.40 cm) al4 MDM: 21:24 Patient medically screened. [facility] 23:43 Data reviewed: vital signs, nurses notes. Counseling: I had a detailed discussion with corina the patient and/or guardian regarding: the historical points, exam findings, and any diagnostic results supporting the discharge/admit diagnosis, lab results, radiology results, the need for outpatient follow up, to return to the emergency department if symptoms worsen or persist or if there are any questions or concerns that arise at home. ED course: Nontoxic in appearance in the ED. Patient was given early appendicitis return precautions. Patient will otherwise follow-up with her OB tomorrow for further evaluation. Patient understood and agrees to plan of care.. 02/01 21:22 Order name: CBC with Diff; Complete Time: 22:56 [facility] 02/01 21:22 Order name: CMP; Complete Time: 23:05 [facility] 02/01 21:22 Order name: Lipase; Complete Time: 23:05 [facility] 02/01 21:23 Order name: US Abdomen Limited [facility] 02/01 21:59 Order name: Urine Dipstick-Ancillary; Complete Time: 21:59 [facility] 02/01 22:01 Order name: Urine --Ancillary (enter results); Complete Time: 22:27 [facility] 02/01 21:22 Order name: IV Saline Lock; Complete Time: 22:35 [facility] 02/01 21:22 Order name: Labs collected and sent; Complete Time: 22:35 [facility] 02/01 21:22 Order name: Urine Dipstick-Ancillary (obtain specimen); Complete Time: 21:58 [facility] 02/01 21:23 Order name: US 1st Trimest Single 1st Fetus [facility] 02/01 21:57 Order name: Urine Test (obtain specimen); Complete Time: 21:58 al4 Administered Medications: No medications were administered Disposition Summary: 02/01/22 23:44 Discharge Ordered Location: Home [facility] Condition: Stable jmm Diagnosis - Abdominal pain, unspecified jmm Followup: [facility] - With: Private Physician - When: Tomorrow - Reason: Recheck today's complaints, Continuance of care, Re-evaluation by your physician Discharge Instructions: - Discharge Summary Sheet jm - Abdominal Pain During [facility] Forms: - Medication Reconciliation Form [facility] - Thank You Letter [facility] - Antibiotic Education [facility] - Prescription Opioid Use [facility] - Work release form ld1 - Family Work Release ld1 Signatures: Dispatcher [employer] Jay Guillory PA PA jmm Ledbetter, Alexis al4
[2022-02-02 00:23] VITALS: TEMP 99.2; O2SAT 100
[2022-02-02 00:24] VITALS: BP 123/81
--- NOTE | 2022-02-02 20:09 | RAD REPORT ---
EXAM DESCRIPTION: ABDOMINAL ULTRASOUND, LIMITED. CLINICAL HISTORY: EPIGASTRIC PAIN COMPARISON: None TECHNIQUE: Transabdominal high resolution grayscale sonographic evaluation of the abdomen performed with color flow. FINDINGS: No stones or sludge seen within the gallbladder. The gallbladder wall is 2 mm. No perichol ecystic fluid. Negative sonographic Swenson's sign. Common bile duct is 2 mm. The imaged right lobe of the liver appears normal. No ascites. Hepatopedal flow is present in the payam n portal vein. IMPRESSION: 1. Unremarkable exam of the gallbladder. Electronically signed by: Beth Medina DO 02/01/2022 10:33 PM CDT Due to temporary technical issues with the PACS/Fluency reporting system, reports are being signed by the in house radiologists without review as a courtesy to insure prompt reporting. The interpreting radiologist is fully responsible for the content of the report.
--- NOTE | 2022-02-02 20:10 | RAD REPORT ---
EXAM DESCRIPTION: ULTRASOUND EARLY OBSTETRICAL, FIRST TRIMESTER CLINICAL HISTORY: Abdominal pain. COMPARISON: None. TECHNIQUE: High-resolution grayscale transabdominal sonographic evaluation of the pelvis. Color flow utilized. FINDINGS: Anteverted uterus is 11.1 x 7.3 x 0.5 cm. Intrauterine gestation identified. [place]-rump le ngth is 5.1 cm corresponding to 11 weeks, 4 day gestation. Heart rate detected is 154 bpm. No subchor ionic bleed. Posterior placenta. Amniotic fluid is subjectively normal. Cervix is 2.3 cm, grossly yamil sed. Right ovary, 2.6 x 2.5 2.0 cm. There is a 1.2 cm right ovarian follicle. Right ovarian flow is presen t. Left ovary: 2.2 x 1.6 x 2.1 cm. Left ovary appears normal with flow identified. There is no pelvic free fluid. No adnexal mass. IMPRESSION: 1. Uncomplicated live intrauterine 11 weeks, 4 day gestation. JEFFERSON: 08/19/2022. Electronically signed by: Beth Medina DO 02/01/2022 10:37 PM CDT Due to temporary technical issues with the PACS/Fluency reporting system, reports are being signed by the in house radiologists without review as a courtesy to insure prompt reporting. The interpreting radiologist is fully responsible for the content of the report.
== END 2022-02-01 23:56 | disposition home or self-care (01) ==
LOC: ER 19:50
DX: O26.891 Other specified pregnancy related conditions, first trimester (principal); Z3A.12 12 weeks gestation of pregnancy
CPT/HCPCS: 36415; 76705; 76801; 80053; 81003; 81025; 83690; 85025; 99284